=== PATIENT | female | born 1955 | race Two or more races ===

== ENCOUNTER 2025-02-05 14:18 | Emergency (ER) | payer MEDICARE, MEDICAID, SELFPAY ==
[2025-02-05 14:20] VITALS: BMI 36.6
--- NOTE | 2025-02-05 14:32 | XR_ITS ---
Examination: Left elbow 3 views Technique: Elbow AP, oblique, lateral 3 views Exam date and time: February 05, 2025 at 1455 hours INDICATIONS: Patient fell today with injury to the elbow, elbow pain FINDINGS: Complete elbow dislocation, humerus displaced anteriorly relative to the radial head and ulnar notch of the ulna No fracture IMPRESSION:: Complete elbow dislocation
--- NOTE | 2025-02-05 14:32 | XR_ITS ---
Examination: Forearm, left, 2 views. Technique: Forearm, AP, lateral 2 views Date and time of exam: February 05, 2025 1455 hours INDICATIONS: Patient fell today with into the forearm, forearm pain. FINDINGS: Complete elbow dislocation Comminuted impacted intra-articular fractures distal radial metaphysis IMPRESSION: Complete elbow dislocation Comminuted intra-articular impacted fractures distal radial metaphysis
--- NOTE | 2025-02-05 14:32 | XR_ITS ---
Examination: Knee, right , 3 views Technique: Knee AP, lateral, oblique 3 views Date and time of exam: February 05, 2025 1448 hours INDICATIONS: Patient fell today with injury to the knee, knee pain. FINDINGS: No acute fracture Moderate narrowing medial joint space No patellar dislocation IMPRESSION: No acute fracture
--- NOTE | 2025-02-05 14:32 | XR_ITS ---
Examination: Wrist, left 3 views Technique: Wrist AP, oblique, lateral 3 views Date and time of exam: February 05, 2025 1448 hours INDICATIONS: Patient fell today with injury to the wrist, wrist pain. FINDINGS: Acute comminuted intra-articular impacted fractures distal radial metaphysis Carpal bones intact IMPRESSION: Acute impacted comminuted intra-articular fractures distal radial metaphysis
[2025-02-05 14:33] VITALS: BP 114/70; PULSE 76; RESP 20; TEMP 36.5; O2SAT 96
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
[2025-02-05] MEDS: KETOROLAC INJ 60 MG/2 ML VIAL 30 MG IM (15:18)
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
[2025-02-05 15:44] VITALS: BP 170/73; PULSE 87; RESP 18; TEMP 36.5; O2SAT 97
--- NOTE | 2025-02-05 15:57 | XR_ITS ---
Examination: Left elbow 2 views TECHNIQUE: AP lateral left elbow 2 views INDICATIONS: Elbow dislocation February 05, 2025 1455 hours post reduction films. FINDINGS: Successful elbow reduction No fracture is noted Moderate elbow effusion IMPRESSION: Successful reduction of elbow dislocation
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
--- NOTE | 2025-02-05 16:37 | PC.NURSE ---
Patient c/o pain 8/10 to left arm. Provider Karen made aware. New order for [place] 10/325mg PO x1 now.
[2025-02-05] MEDS: HYDROcodone/APAP 10/325 TAB PO (16:43)
== END 2025-02-05 18:21 | disposition home or self-care (01) ==
PROVIDERS: Emergency Provider Emergency Medicine; PCP Physician Assistant
DX: S52.572A Other intraarticular fracture of lower end of left radius, initial encounter for closed fracture (principal); S53.115A Anterior dislocation of left ulnohumeral joint, initial encounter; S89.92XA Unspecified injury of left lower leg, initial encounter; V03.90XA Pedestrian on foot injured in collision with car, pick-up truck or van, unspecified whether traffic or nontraffic accident, initial encounter
CPT/HCPCS: 24600; 73070; 73080; 73090; 73110; 73562; 96372; 99283; J1885; A9270

== ENCOUNTER → 2025-04-15 | Outpatient (CLI) | payer MEDICARE, MEDICAID, SELFPAY ==
--- NOTE | 2025-04-15 13:20 | XR_ITS ---
Examination: Bone densitometry Date and time of exam:April 15, 2025 1340 hours INDICATIONS: Menopause age 59, family history sister osteoporosis Technique: Lumbar spine and hip total bone mineralization values of an calculated. Peak reference and age match control results have been displayed. Findings: Lumbar spine total bone mineralization is1.047 gm/cm2. This is 0.0 standard deviations at peak reference. This is 1.9 standard deviations above age-matched controls. Hip total bone mineralization is 0.861 gm/cm2 This is 0.8 standard deviations below peak reference. This is 0.5 standard deviations above age-matched controls Impression: There is normal mineralization based on lumbar spine measurements. There is osteopenia based on hip measurements
== END | disposition home or self-care (01) ==
PROVIDERS: PCP Physician Assistant; Referring Provider Physician Assistant; Visit Provider Physician Assistant
DX: M85.88 Other specified disorders of bone density and structure, other site (principal)
CPT/HCPCS: 77080

== ENCOUNTER 2025-05-04 13:30 | Outpatient (RCR) | payer MEDICARE, MEDICAID, SELFPAY ==
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
--- NOTE | 2025-04-22 09:09 | PTNOTE_ITS ---
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 Objective: Please see flow sheet for ther ex list. Assessment: Pt demonstrates good tolerance with interventions assigned. Instructed pt on tendon glides and gave print out for HEP. Plan: Continue with POC. Length of Time (minutes) of Treatment: 30 Minutes CONTROL CLERK SUBASSEMBLY Service Modifier Method I: Divide the number of min of care provided by the CONTROL CLERK SUBASSEMBLY/LARRY by the total min of care provided then multiply by 100. If greater than 11 percent modifier is required. Method II: Divide the total time of care provided to patient by 10 (round to the nearest whole number) and add 1 min. to set the minimum time requirement. If treatment total was 60 min., then 10% of 6 min PT CQ modifier applied: CQ Modifier applied Procedure Charges Therapeutic Exercise 30 minutes: Yes
--- NOTE | 2025-04-24 15:51 | PT.ODAYNRPT ---
PT Outpatient Daily Note OP Daily Note Outpatient Physical Therapy Treatment Date: 04/24/25 Visit Reasons: Post op left wrist Subjective: Pt reports compliance with HEP. Objective: Please see flow sheet for ther ex list. Assessment: Added clothes pins exercise to work on finger dexterity and pinch strength. Plan: Continue with POC. Length of Time (minutes) of Treatment: 30 Minutes Procedure Charges Therapeutic Exercise 30 minutes: Yes
--- NOTE | 2025-05-04 14:43 | PT.ODAYNRPT ---
PT Outpatient Daily Note OP Daily Note Outpatient Physical Therapy Treatment Date: 05/04/25 Visit Reasons: Post op left wrist Subjective: Pt reports L wrist is doing better, notices her ability to make a fist has improved. Objective: Please see flow sheet for ther ex list. 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 Plan: Progress degreasing solution mixer strengthening. Length of Time (minutes) of Treatment: 30 Minutes Procedure Charges Therapeutic Exercise 30 minutes: Yes
== END 2025-05-10 23:59 | disposition home or self-care (01) ==
LOC: CPTX 13:30
PROVIDERS: PCP Nurse Practitioner Gerontology; Referring Provider Nurse Practitioner Gerontology; Visit Provider Nurse Practitioner Gerontology
DX: M25.532 Pain in left wrist (principal); R53.1 Weakness; S52.502D Unspecified fracture of the lower end of left radius, subsequent encounter for closed fracture with routine healing; W19.XXXD Unspecified fall, subsequent encounter
CPT/HCPCS: 97110; 97162

== ENCOUNTER 2025-05-20 13:30 | Outpatient (RCR) | payer MEDICARE, MEDICAID, SELFPAY ==
--- NOTE | 2025-05-13 14:01 | PTNOTE_ITS ---
PT Outpatient Daily Note OP Daily Note Outpatient Physical Therapy Treatment Date: 05/13/25 Visit Reasons: post op left wrist Subjective: Pt reports progress with L hand, can close it better to make a fist but still c/o weakness. Objective: Please see flow sheet for ther ex list. Assessment: Focus on restoring strength, can achieve digit flexion WNL during PROM. Plan: Continue with poC. Length of Time (minutes) of Treatment: 30 Minutes OIL HEAT TECHNICIAN Service Modifier Method I: Divide the number of min of care provided by the OIL HEAT TECHNICIAN/SUPERINTENDENT CONTAINER TERMINAL by the total min of care provided then multiply by 100. If greater than 11 percent modifier is required. Method II: Divide the total time of care provided to patient by 10 (round to the nearest whole number) and add 1 min. to set the minimum time requirement. If treatment total was 60 min., then 10% of 6 min PT CQ modifier applied: CQ Modifier applied Procedure Charges Therapeutic Exercise 30 minutes: Yes
--- NOTE | 2025-05-20 14:45 | PT.ODAYNRPT ---
PT Outpatient Daily Note OP Daily Note Outpatient Physical Therapy Treatment Date: 05/20/25 Visit Reasons: post op left wrist Subjective: Pt reports L hand is doing better, content to share that gripping is not 100% but is progressing. Objective: Please see flow sheet for ther ex list. 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 Plan: Continue with pOC. Length of Time (minutes) of Treatment: 30 Minutes AIRCONDITIONING DRAFTING OFFICER Service Modifier Method I: Divide the number of min of care provided by the AIRCONDITIONING DRAFTING OFFICER/SULFATE DRIER MACHINE OPERATOR by the total min of care provided then multiply by 100. If greater than 11 percent modifier is required. Method II: Divide the total time of care provided to patient by 10 (round to the nearest whole number) and add 1 min. to set the minimum time requirement. If treatment total was 60 min., then 10% of 6 min PT CQ modifier applied: CQ Modifier applied Procedure Charges Therapeutic Exercise 30 minutes: Yes
== END 2025-06-09 23:59 | disposition home or self-care (01) ==
LOC: CPTX 13:30
PROVIDERS: PCP Nurse Practitioner Gerontology; Referring Provider Nurse Practitioner Gerontology; Visit Provider Nurse Practitioner Gerontology
DX: M25.532 Pain in left wrist (principal); S52.502D Unspecified fracture of the lower end of left radius, subsequent encounter for closed fracture with routine healing; W19.XXXD Unspecified fall, subsequent encounter; R53.1 Weakness
CPT/HCPCS: 97110

== ENCOUNTER 2025-06-30 11:30 | Outpatient (RCR) | payer MEDICARE, MEDICAID, SELFPAY ==
--- NOTE | 2025-06-15 13:28 | PT.ODAYNRPT ---
PT Outpatient Daily Note OP Daily Note Outpatient Physical Therapy Treatment Date: 06/15/25 Visit Reasons: Post op left surgery Subjective: Pt reports hand is doing better, notice she can make a fist with more ease and more flexibility in wrist. Objective: Please see flow sheet for ther ex list. Assessment: Progression of interventions completed with minimal muscle fatigue but no pain. Plan: Continue with pOC. Length of Time (minutes) of Treatment: 30 Minutes SADDLE LINING STITCHER Service Modifier Method I: Divide the number of min of care provided by the SADDLE LINING STITCHER/LARRY by the total min of care provided then multiply by 100. If greater than 11 percent modifier is required. Method II: Divide the total time of care provided to patient by 10 (round to the nearest whole number) and add 1 min. to set the minimum time requirement. If treatment total was 60 min., then 10% of 6 min PT CQ modifier applied: CQ Modifier applied Procedure Charges Therapeutic Exercise 30 minutes: Yes
--- NOTE | 2025-06-23 14:06 | PT.ODAYNRPT ---
PT Outpatient Daily Note OP Daily Note Outpatient Physical Therapy Treatment Date: 06/23/25 Visit Reasons: Post op left surgery Subjective: Pt reports L hand is doing better notices strength slowly progressing. Objective: Please see flow sheet for ther ex list. L YOSHI electronic prepress technician score 30 lbs. Assessment: Pt electronic prepress technician strength improving indicated by above measurements. Plan: Continue with pOC. Length of Time (minutes) of Treatment: 30 Minutes CONTINUOUS MINER OPERATOR Service Modifier Method I: Divide the number of min of care provided by the CONTINUOUS MINER OPERATOR/BUSINESS LIAISON MANAGER by the total min of care provided then multiply by 100. If greater than 11 percent modifier is required. Method II: Divide the total time of care provided to patient by 10 (round to the nearest whole number) and add 1 min. to set the minimum time requirement. If treatment total was 60 min., then 10% of 6 min PT CQ modifier applied: CQ Modifier applied Procedure Charges Therapeutic Exercise 30 minutes: Yes
--- NOTE | 2025-06-30 13:28 | PTNOTE_ITS ---
PT Outpatient Daily Note OP Daily Note Outpatient Physical Therapy Treatment Date: 06/30/25 Visit Reasons: Post op left surgery Subjective: Pt reports L hand is doing ok, feels progress with wrist movement but feels like her durability technician strength is weak. Objective: Please see flow sheet for ther ex list. Assessment: Focus on restoring strength and overall ROM of L wrist. Pt encouraged to continue with wrist stretches at home to maximize rehab potential. Plan: Continue with pOC. Length of Time (minutes) of Treatment: 30 Minutes Procedure Charges Therapeutic Exercise 30 minutes: Yes
== END 2025-07-10 23:59 | disposition home or self-care (01) ==
LOC: CPTX 11:30
PROVIDERS: PCP Nurse Practitioner Gerontology; Referring Provider Nurse Practitioner Gerontology; Visit Provider Nurse Practitioner Gerontology
DX: M25.522 Pain in left elbow (principal); R53.1 Weakness; S52.502D Unspecified fracture of the lower end of left radius, subsequent encounter for closed fracture with routine healing; W19.XXXD Unspecified fall, subsequent encounter
CPT/HCPCS: 97110